=== PATIENT | female | born 2000 ===

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

== ENCOUNTER 2018-03-09 19:00 | Inpatient (IN) | payer MEDICAID, OTHER ==
[2018-03-09] MEDS ORDERED: Sodium Chloride 0.9% 1,000 ML IV STA (20:38)
--- NOTE | 2018-03-09 20:48 | ED PDOC ---
HPI: Back <Danay Brooks A - Last Filed: 03/09/18 23:24> Chief Complaint (Provider): low back pain History Per: Patient History/Exam Limitations: no limitations Onset/Duration Of Symptoms: Days (2), Waxing/Waning Current Symptoms Are (Timing): Still Present Quality Of Discomfort: "Pain" Exacerbating Factor(s): Turning, Movement Additional Complaint(s): 17 y/o female, approximately 16 weeks gestation, presents for evaluation of intermittent lower back pain x 2 days. Patient also reports nausea and 5 episodes of vomiting yesterday. States today she notes abdominal pain and subjective fevers. Denies congestion, cough, chest pain, shortness of breath, palpitations, changes in bowel movements, urinary symptoms, vaginal bleeding/discharge. No medication taken for relief thus far. A0 LMP 11/10/17 <Yumiko Gonzalez - Last Filed: 03/10/18 04:03> Time Seen by Provider: 03/09/18 20:13 Chief Complaint (Nursing): Back Pain Past Medical History Vital Signs: Last Vital Signs Temp 98.5 F 03/09/18 19:49 Pulse 78 03/09/18 19:49 Resp 16 03/09/18 19:49 BP 108/70 03/09/18 19:49 Pulse Ox 98 03/09/18 20:48 <Danay Brooks A - Last Filed: 03/09/18 23:24> Reviewed: Historical Data, Nursing Documentation, Vital Signs Vital Signs: Last Vital Signs Temp 98.5 F 03/09/18 19:49 Pulse 78 03/09/18 19:49 Resp 16 03/09/18 19:49 BP 108/70 03/09/18 19:49 Pulse Ox 98 03/09/18 19:49 - Medical History PMH: Anemia - Surgical History Surgical History: No Surg Hx - Family History Family History: States: No Known Family Hx <Yumiko Gonzalez - Last Filed: 03/10/18 04:03> - Home Medications Home Medications: Ambulatory Orders Medication Instructions Recorded Multivit/Folic Acid/I 1 tab PO DAILY #100 tab 12/25/17 [ Plus] - Allergies Allergies/Adverse Reactions: Allergies Allergy/AdvReac Type Severity Reaction Status Date / Time No Known Allergies Allergy Verified 03/09/18 19:49 Review of Systems ROS Statement: Except As Marked, All Systems Reviewed And Found Negative Gastrointestinal: Positive for: Abdominal Pain Musculoskeletal: Positive for: Back Pain <Yumiko Gonzalez C - Last Filed: 03/10/18 04:03> Physical Exam - Reviewed Nursing Documentation Reviewed: Yes Vital Signs Reviewed: Yes - Physical Exam Appears: Positive for: Well, Non-toxic, No Acute Distress Head Exam: Positive for: ATRAUMATIC, NORMAL INSPECTION, NORMOCEPHALIC Skin: Positive for: Normal Color Eye Exam: Positive for: Normal appearance ENT: Positive for: Normal ENT Inspection Cardiovascular/Chest: Positive for: Regular Rate, Rhythm Respiratory: Positive for: Normal Breath Sounds Gastrointestinal/Abdominal: Positive for: Bowel Sounds, Soft, Tenderness (epigastric, right flank, RLQ, suprapubic) Back: Positive for: Muscle Spasm (b/l lspine paravertebral tenderness). Negative for: L CVA Tenderness, R CVA Tenderness, Vertebral Tenderness, Decreased ROM Extremity: Positive for: Normal ROM Neurologic/Psych: Positive for: Alert, Oriented (x3) <Yumiko Gonzalez C - Last Filed: 03/10/18 04:03> - Laboratory Results Result Diagrams: 03/09/18 21:26 03/09/18 21:26 <Danay Brooks A - Last Filed: 03/09/18 23:24> - Laboratory Results Result Diagrams: 03/09/18 21:26 03/09/18 21:26 - ECG O2 Sat by Pulse Oximetry: 98 - Progress ED Course And Treament: labs, urine, u/s USArad abdominal RUQ u/s: gallbladder sludge USArad OB u/s: single live intrauterine gestation, 16 weeks, 1 day. Anterior placenta. Cephalic presentation. FH 155bpm Case discussed with ED attending Dr. Osborne; patient with elevated WBC and bandemia. Will place in observation for serial abdominal exams and MRI to r/out early appendicitis Patient evaluated by Dr. Morales, certified surgical technician on-call; will observe for MRI in am. Case discussed with Dr. Velasquez, hospitalist on-call for placement in observation <Yumiko Gonzalez C - Last Filed: 03/10/18 04:03> Disposition <Danay Brooks A - Last Filed: 03/09/18 23:24> - Patient ED Disposition Is Patient to be Admitted: No - Disposition Disposition Time: 03:00 <Yumiko Gonzalez - Last Filed: 03/10/18 04:03> - Clinical Impression Clinical Impression: Abdominal pain during , Bandemia - Disposition Condition: FAIR
[2018-03-09 21:33] LABS: BASO # 0.1 K/uL (0.0-0.2); BASO % 0.7 % (0.0-2.0); EOS % 0.2 % (0.0-4.0); HEMOGLOBIN 10.2 g/dL (12.0-16.0); LYMPH # 0.9 K/uL (1.0-4.3); LYMPH % 5.5 % (20.0-40.0); MEAN CELL VOLUME 83.2 fl (81.0-99.0); MEAN CORPUSCULAR HEMOGLOBIN 27.8 pg (27.0-31.0); MEAN CORPUSCULAR HGB CONC 33.5 g/dL (33.0-37.0); MEAN PLATELET VOLUME 8.7 fl (7.2-11.7); MONO # 1.6 K/uL (0.0-0.8); MONO % 10.3 % (0.0-10.0); NEUT % 83.3 % (50.0-75.0); PLATELET COUNT 216 K/uL (130-400); RBC 3.67 Mil/uL (3.80-5.20); RED CELL DISTRIBUTION WIDTH 16.6 % (11.5-14.5); WHITE BLOOD COUNT 15.6 K/uL (4.8-10.8)
[2018-03-09 21:40] LABS: ALB/GLOB RATIO 0.9 (1.0-2.1); ALBUMIN 3.8 g/dL (3.5-5.0); ALT/SGPT 50 U/L (9-52); AST/SGOT 45 U/L (14-36); BLOOD UREA NITROGEN 5 mg/dl (7-17); CALCIUM 9.2 mg/dL (8.4-10.2); GFR NON-AFRICAN AMERICAN > 60; LIPASE 19 U/L (23-300)
[2018-03-09 21:56] LABS: SQUAMOUS EPITHIAL 13 /hpf (0-5); URINE AMORPHOUS SEDIMENT RARE /ul (<OCC); URINE BACTERIA MOD (<OCC); URINE BILIRUBIN NEGATIVE (NEGATIVE); URINE BLOOD SMALL (NEGATIVE); URINE CLARITY CLOUDY (Clear); URINE COLOR YELLOW (YELLOW); URINE GLUCOSE (UA) NEG (Normal); URINE LEUKOCYTE ESTERASE TRACE Leu/uL (Negative); URINE PROTEIN 30 mg/dL (NEGATIVE); URINE UROBILINOGEN 0.2-1.0 mg/dL (0.2-1.0)
[2018-03-09 22:35] LABS: ANISOCYTOSIS SLIGHT; BANDS 5 % (0-2); BASOPHIL 1 % (0-2); LYMPHOCYTE 7 % (20-50); MONOCYTE 10 % (0-10); NEUTROPHIL 77 % (42-75); PLATELET ESTIMATE NORMAL (NORMAL); POIKILOCYTOSIS SLIGHT; TOTAL CELLS COUNTED 100
[2018-03-09 22:36] LABS: HYPOCHROMIC SLIGHT; MICROCYTOSIS SLIGHT; OVALOCYTES SLIGHT
--- NOTE | 2018-03-10 01:55 | CP.PCM.CON ---
Addendum entered and electronically signed by Elena Gee DO 03/10/18 12:32: No surgical intervention necessary at this time. Surgery will sign off. Please re-consult as necessary. Addendum entered and electronically signed by Elena Gee DO 03/10/18 12:27: MRI of abdomen/pelvis: No evidence of acute appendicitis, although normal appendix not positively identified on MRI. Trace fluid in right pericolic gutter, trace right perinephric fluid. Concern for pyelonephritis of right kidney. Pt tender Right CVA and right flank. Pt hungry. Appendicitis unlikely given MRI findings, clinical history of pain for several weeks, and physical exam. Will give regular diet. Pain/leukocytosis possibly secondary to pyelonephritis. Original Note: <FemibrendaJarad - Last Filed: 03/10/18 01:51> History of Present Illness - History of Present Illness History of Present Illness: Surgery: Dr. Schmidt CC: Abd pain HPI: 17F 16 weeks presents w. RLQ pain x 2 weeks. Pain is constant, described as cramp like. Pain is improved when pt lies on R side. Pt states that she has had no change in appetite over this period. However over the last 2 days she did have new onset nausea with emesis x 5. She denies diarrhea. She does report subjective fever and chills. She denies dysuria. Shes does state that her urine is darker than usual. No foul odor. She denies vaginal bleeding or discharge. PMH: Anemia PSH: none Meds: multi vitamin NKDA Social hx: No ETOH/tobacco/drugs Fhx: non-contributory Review of Systems - Review of Systems All systems: reviewed and no additional remarkable complaints except (HPI) Past Patient History - Past Social History Smoking Status: Never Smoked - HEMATOLOGICAL/ONCOLOGICAL Hx Anemia: Yes - PSYCHIATRIC Hx Substance Use: No - SURGICAL HISTORY Hx Surgeries: No - ANESTHESIA Hx Anesthesia: No Meds Allergies/Adverse Reactions: Allergies Allergy/AdvReac Type Severity Reaction Status Date / Time No Known Allergies Allergy Verified 03/09/18 19:49 Physical Exam - Constitutional Appears: Non-toxic, No Acute Distress - Head Exam Head Exam: ATRAUMATIC, NORMOCEPHALIC - Eye Exam Eye Exam: EOMI - ENT Exam ENT Exam: Mucous Membranes Moist - Neck Exam Neck exam: Positive for: Full Rom - Respiratory Exam Respiratory Exam: NORMAL BREATHING PATTERN. absent: Accessory Muscle Use, Respiratory Distress - Cardiovascular Exam Cardiovascular Exam: RRR - GI/Abdominal Exam GI & Abdominal Exam: Soft, Tenderness (RLQ, mild). absent: Distended, Firm, Guarding, Rebound, Rigid Additional comments: + Obturator, -Psoas - Extremities Exam Extremities exam: Negative for: calf tenderness, pedal edema - Neurological Exam Neurological exam: Alert, Oriented x3 Results - Vital Signs Recent Vital Signs: Last Vital Signs Temp 98.5 F 03/09/18 19:49 Pulse 78 03/09/18 19:49 Resp 16 03/09/18 19:49 BP 108/70 03/09/18 19:49 Pulse Ox 98 03/10/18 01:01 - Labs Result Diagrams: 03/09/18 21:26 03/09/18 21:26 Labs: Laboratory Results - last 24 hr 03/09/18 03/09/18 03/09/18 21:26 21:26 21:33 WBC 15.6 H D RBC 3.67 L Hgb 10.2 L Hct 30.5 L MCV 83.2 MCH 27.8 MCHC 33.5 RDW 16.6 H Plt Count 216 MPV 8.7 Neut % (Auto) 83.3 H Lymph % (Auto) 5.5 L [place] % (Auto) 10.3 H Eos % (Auto) 0.2 Baso % (Auto) 0.7 Neut # (Auto) 13.0 H Lymph # (Auto) 0.9 L [place] # (Auto) 1.6 H Eos # (Auto) 0.0 Baso # (Auto) 0.1 Neutrophils % (Manual) 77 H Band Neutrophils % 5 H Lymphocytes % (Manual) 7 L Monocytes % (Manual) 10 Basophils % (Manual) 1 Platelet Estimate Normal Hypochromasia (manual) Slight Poikilocytosis (manual Slight Anisocytosis (manual) Slight Microcytosis (manual) Slight Ovalocytes Slight Sodium 136 Potassium 3.9 Chloride 104 Carbon Dioxide 25 Anion Gap 11 BUN 5 L Creatinine 0.4 L Est GFR ( Amer) > 60 Est GFR (Non-Af Amer) > 60 Random Glucose 102 Calcium 9.2 Total Bilirubin 0.3 AST 45 H ALT 50 Alkaline Phosphatase 58 Total Protein 7.9 Albumin 3.8 Globulin 4.1 H Albumin/Globulin Ratio 0.9 L Lipase 19 L Urine Color Yellow Urine Clarity Cloudy Urine pH 7.0 Ur Specific [place] 1.009 Urine Protein 30 Urine Glucose (UA) Neg Urine Ketones Negative Urine Blood Small Urine Nitrate Negative Urine Bilirubin Negative Urine Urobilinogen 0.2-1.0 Ur Leukocyte Esterase Trace Urine RBC (Auto) 5 H Urine Microscopic WBC 6 H Ur Squamous Epith Cells 13 H Amorphous Sediment Rare H Urine Bacteria Mod H - Imaging and Cardiology US - abdomen Status: Image reviewed by me, Report reviewed by me Assessment & Plan - Assessment and Plan (Free Text) Assessment: 17F w. RLQ pain, r/o appy -NPO -IVF -MRI -No abx at this time -serial abd exams -d/w attending Andrew PGY4 <Palmer Schmidt - Last Filed: 03/10/18 10:40> History of Present Illness - History of Present Illness History of Present Illness: Patient was seen and examined at the bedside. Agree with resident's note above. Patient was c/o right flank pain for the last 1 month but during the course of the last 2 weeks the pain has gotten worse. Meds - Medications Medications: Current Medications Acetaminophen (Tylenol 325mg Tab) 650 mg PO Q6 PRN PRN Reason: Pain, moderate (4-7) Last Admin: 03/10/18 08:10 Dose: 650 mg Ceftriaxone Sodium 1 gm/ (Sodium Chloride) 100 mls @ 100 mls/hr IVPB DAILY OTTONIEL; Protocol Last Admin: 03/10/18 04:10 Dose: 100 mls/hr Sodium Chloride (Sodium Chloride 0.9%) 1,000 mls @ 999 mls/hr IV .Q1H1M OTTONIEL Stop: 03/10/18 11:15 Physical Exam - GI/Abdominal Exam Additional comments: soft, very mildly tender on the right side, ND, BS+, no rebound, no guarding - Back Exam Additional comments: very mild right CVA tenderness Results - Vital Signs Recent Vital Signs: Last Vital Signs Temp 101.9 F H 03/10/18 08:27 Pulse 109 H 03/10/18 08:27 Resp 20 03/10/18 08:27 BP 95/59 L 03/10/18 08:27 Pulse Ox 96 03/10/18 08:27 - Labs Result Diagrams: 03/10/18 03:55 03/10/18 03:55 Labs: Laboratory Results - last 24 hr 03/09/18 03/09/18 03/09/18 21:26 21:26 21:33 WBC 15.6 H D RBC 3.67 L Hgb 10.2 L Hct 30.5 L MCV 83.2 MCH 27.8 MCHC 33.5 RDW 16.6 H Plt Count 216 MPV 8.7 Neut % (Auto) 83.3 H Lymph % (Auto) 5.5 L [place] % (Auto) 10.3 H Eos % (Auto) 0.2 Baso % (Auto) 0.7 Neut # (Auto) 13.0 H Lymph # (Auto) 0.9 L [place] # (Auto) 1.6 H Eos # (Auto) 0.0 Baso # (Auto) 0.1 Neutrophils % (Manual) 77 H Band Neutrophils % 5 H Lymphocytes % (Manual) 7 L Monocytes % (Manual) 10 Basophils % (Manual) 1 Platelet Estimate Normal Hypochromasia (manual) Slight Poikilocytosis (manual Slight Anisocytosis (manual) Slight Microcytosis (manual) Slight Ovalocytes Slight Sodium 136 Potassium 3.9 Chloride 104 Carbon Dioxide 25 Anion Gap 11 BUN 5 L Creatinine 0.4 L Est GFR ( Amer) > 60 Est GFR (Non-Af Amer) > 60 Random Glucose 102 Calcium 9.2 Total Bilirubin 0.3 AST 45 H ALT 50 Alkaline Phosphatase 58 Total Protein 7.9 Albumin 3.8 Globulin 4.1 H Albumin/Globulin Ratio 0.9 L Lipase 19 L Urine Color Yellow Urine Clarity Cloudy Urine pH 7.0 Ur Specific [place] 1.009 Urine Protein 30 Urine Glucose (UA) Neg Urine Ketones Negative Urine Blood Small Urine Nitrate Negative Urine Bilirubin Negative Urine Urobilinogen 0.2-1.0 Ur Leukocyte Esterase Trace Urine RBC (Auto) 5 H Urine Microscopic WBC 6 H Ur Squamous Epith Cells 13 H Amorphous Sediment Rare H Urine Bacteria Mod H 03/10/18 03/10/18 03:55 03:55 WBC 14.8 H RBC 3.40 L Hgb 9.6 L Hct 28.3 L MCV 83.3 MCH 28.3 MCHC 34.0 RDW 16.6 H Plt Count 217 MPV 8.4 Neut % (Auto) 83.2 H Lymph % (Auto) 6.7 L [place] % (Auto) 9.7 Eos % (Auto) 0.3 Baso % (Auto) 0.1 Neut # (Auto) 12.3 H Lymph # (Auto) 1.0 [place] # (Auto) 1.4 H Eos # (Auto) 0.0 Baso # (Auto) 0.0 Neutrophils % (Manual) Band Neutrophils % Lymphocytes % (Manual) Monocytes % (Manual) Basophils % (Manual) Platelet Estimate Hypochromasia (manual) Poikilocytosis (manual Anisocytosis (manual) Microcytosis (manual) Ovalocytes Sodium 135 Potassium 3.7 Chloride 107 Carbon Dioxide 23 Anion Gap 9 L BUN 5 L Creatinine 0.4 L Est GFR ( Amer) > 60 Est GFR (Non-Af Amer) > 60 Random Glucose 102 Calcium 8.6 Total Bilirubin 0.2 AST 40 H ALT 52 Alkaline Phosphatase 51 Total Protein 6.9 Albumin 3.2 L Globulin 3.6 Albumin/Globulin Ratio 0.9 L Lipase Urine Color Urine Clarity Urine pH Ur Specific [place] Urine Protein Urine Glucose (UA) Urine Ketones Urine Blood Urine Nitrate Urine Bilirubin Urine Urobilinogen Ur Leukocyte Esterase Urine RBC (Auto) Urine Microscopic WBC Ur Squamous Epith Cells Amorphous Sediment Urine Bacteria Assessment & Plan - Assessment and Plan (Free Text) Assessment: 17 y.o. female with right flank and right sided abdominal pain Plan: - Keep NPO - IV fluids - pain control - MRI of abdomen/pelvis - Will follow
[2018-03-10] MEDS ORDERED: Sodium Chloride 0.9% 1,000 ML IV SCH ×2 (02:00→10:15)
[2018-03-10] MEDS ORDERED: Dextrose 5%/0.9% NS 1,000 ML IV ONE ×2 (02:21)
--- NOTE | 2018-03-10 02:44 | CP.PCM.HP ---
Addendum entered by Serena Hidalgo MD 03/10/18 15:35: Acute Pyelonephritis , unlikely ACute Appendicitis -transfer pt to Tele for close monitoring, pt persistently febrile - check lactate -IV ceftriaxone increase to 1 gram bid -ID consult Addendum entered and electronically signed by Bam Medeiros DPM 03/10/18 09:58: S: 17 y/o female patient was seen and evaluated at bedside. Patient complains of right flank pain at this time, however, denies any symptoms of nausea, vomiting, diarrhea, vaginal discharge or urinary complaints. Patient reports of minimal back pain, which been present for several weeks. Patient states this is her first , and denies any issues with her . Patient denies any ot her past medical history. O: Vitals signs reviewed- T 101.9, KS 109, BP 95/59 Exam: Abdominal Exam: Diminished Bowel Sounds, Soft, Tenderness to right upper quadrant and right flank, no RLQ tenderness with deep palpation, rosving negative, absent: Distended, Guarding Back exam: positive CVA tenderness (R), absent: CVA tenderness (L) A: 17 year old at 16 weeks GA with hx of nausea, vomiting, subjective fevers, right flank pain x 2 weeks admitted for right sided back pain, likely secondary to acute pyelonephritis vs acute appendicitis P: 1) Right Flank Pain - likely renal in origin vs RUQ (gallbladder) - Abdominal US Results- Pending Final read - pain management - General Surgery Consult- recommendations appreciated, patient NPO at this time - F/u MRI 2) Urinary Tract Infection - febrile, with positive leukocytosis - UA: positive - Continue Rocephin 1 gm DAILY OTTONIEL - STAT Bolus NS 1L, continue IV hydration - F/u Urine Culture - F/u Blood Culture 3) - OB-BAIT PACKER Consult- recommendations appreciated 4) DVT Prophylaxis - SCDs Original Note: <Sarah Diaz - Last Filed: 03/10/18 02:40> History of Present Illness - History of Present Illness History of Present Illness: 17 year old at 16 weeks GA presented with 2 week history of right flank pain, now with associated nausea and vomiting since yesterday. She reports she had pain on right side, pain has not worsened but has persisted. Pain does not radiate. She has not taken anything for the pain. She admits she does not drink much water and has constipation. Reports subjective fevers/chills but denies any dysuria, hematuria, malodor of urine. She last saw PMD about 2 weeks ago. No issues with . PMD: [facility] PMH: denies Medications: PNV Allergies: NKDA Social: no tobacco/etoh use Surgical Hx: denies Present on Admission - Present on Admission Any Indicators Present on Admission: No Review of Systems - Constitutional Constitutional: Chills, Fever - Cardiovascular Cardiovascular: absent: Chest Pain, Dyspnea, Rapid Heart Rate - Respiratory Respiratory: absent: Cough, Dyspnea - Gastrointestinal Gastrointestinal: Abdominal Pain (right flank pain), Constipation, Nausea, Vomiting. absent: Bloating, Change in Stool Character, Diarrhea - Genitourinary Genitourinary: Flank Pain (right). absent: Change in Urinary Stream, Difficulty Urinating, Dysuria, Hematuria, Urinary Frequency, Urinary Urgency - Neurological Neurological: absent: Dizziness Past Patient History - Infectious Disease Hx of Infectious Diseases: None - Past Social History Smoking Status: Never Smoked Alcohol: None Drugs: Denies - HEMATOLOGICAL/ONCOLOGICAL Hx Anemia: Yes - PSYCHIATRIC Hx Substance Use: No - SURGICAL HISTORY Hx Surgeries: No - ANESTHESIA Hx Anesthesia: No Meds Allergies/Adverse Reactions: Allergies Allergy/AdvReac Type Severity Reaction Status Date / Time No Known Allergies Allergy Verified 03/09/18 19:49 Physical Exam - Constitutional Appears: Non-toxic, No Acute Distress - Head Exam Head Exam: ATRAUMATIC, NORMAL INSPECTION, NORMOCEPHALIC - Eye Exam Eye Exam: EOMI, Normal appearance, PERRL Additional comments: wearing glasses - Respiratory Exam Respiratory Exam: Clear to Auscultation Bilateral, NORMAL BREATHING PATTERN. absent: Rales, Rhonchi, Wheezes - Cardiovascular Exam Cardiovascular Exam: REGULAR RHYTHM, +S1, +S2 - GI/Abdominal Exam GI & Abdominal Exam: Diminished Bowel Sounds, Soft, Tenderness (right abdomen, no RLQ tenderness with deep palpation, mild pain with obturator, psoas negative, rovsing negative). absent: Distended, Guarding - Extremities Exam Extremities exam: Positive for: normal inspection. Negative for: pedal edema - Back Exam Back exam: CVA tenderness (R). absent: CVA tenderness (L) - Neurological Exam Neurological exam: Alert, CN II-XII Intact, Oriented x3 - Psychiatric Exam Psychiatric exam: Normal Affect, Normal Mood - Skin Skin Exam: Dry, Intact, Normal Color, Warm Results - Vital Signs Recent Vital Signs: Last Vital Signs Temp 98.5 F 03/09/18 19:49 Pulse 78 03/09/18 19:49 Resp 16 03/09/18 19:49 BP 108/70 03/09/18 19:49 Pulse Ox 98 03/10/18 01:01 - Labs Result Diagrams: 03/09/18 21:26 03/09/18 21:26 Labs: Laboratory Results - last 24 hr 03/09/18 03/09/18 03/09/18 21:26 21:26 21:33 WBC 15.6 H D RBC 3.67 L Hgb 10.2 L Hct 30.5 L MCV 83.2 MCH 27.8 MCHC 33.5 RDW 16.6 H Plt Count 216 MPV 8.7 Neut % (Auto) 83.3 H Lymph % (Auto) 5.5 L [place] % (Auto) 10.3 H Eos % (Auto) 0.2 Baso % (Auto) 0.7 Neut # (Auto) 13.0 H Lymph # (Auto) 0.9 L [place] # (Auto) 1.6 H Eos # (Auto) 0.0 Baso # (Auto) 0.1 Neutrophils % (Manual) 77 H Band Neutrophils % 5 H Lymphocytes % (Manual) 7 L Monocytes % (Manual) 10 Basophils % (Manual) 1 Platelet Estimate Normal Hypochromasia (manual) Slight Poikilocytosis (manual Slight Anisocytosis (manual) Slight Microcytosis (manual) Slight Ovalocytes Slight Sodium 136 Potassium 3.9 Chloride 104 Carbon Dioxide 25 Anion Gap 11 BUN 5 L Creatinine 0.4 L Est GFR ( Amer) > 60 Est GFR (Non-Af Amer) > 60 Random Glucose 102 Calcium 9.2 Total Bilirubin 0.3 AST 45 H ALT 50 Alkaline Phosphatase 58 Total Protein 7.9 Albumin 3.8 Globulin 4.1 H Albumin/Globulin Ratio 0.9 L Lipase 19 L Urine Color Yellow Urine Clarity Cloudy Urine pH 7.0 Ur Specific [place] 1.009 Urine Protein 30 Urine Glucose (UA) Neg Urine Ketones Negative Urine Blood Small Urine Nitrate Negative Urine Bilirubin Negative Urine Urobilinogen 0.2-1.0 Ur Leukocyte Esterase Trace Urine RBC (Auto) 5 H Urine Microscopic WBC 6 H Ur Squamous Epith Cells 13 H Amorphous Sediment Rare H Urine Bacteria Mod H Assessment & Plan - Assessment and Plan (Free Text) Assessment: 17 year old at 16 weeks GA with hx of nausea, vomiting, subjective fevers, right flank pain x 2 weeks admitted for right sided back pain, likely secondary to acute pyelonephritis vs acute appendicitis Patient has R CVA tenderness, leukocytosis with trace leukocytes, +blood and moderate bacteria in urine. She is currently afebrile, hemodynamically stable. #Right sided back pain #Leukocytosis # #DVT Prophylaxis -Start rocephin -Tylenol for pain control -SCDs -MRI in AM -General surgery consult appreciated Case d/w Dr. Velasquez <Minesh Velasquez - Last Filed: 03/10/18 04:12> Results - Vital Signs Recent Vital Signs: Last Vital Signs Temp 98.5 F 03/09/18 19:49 Pulse 78 03/09/18 19:49 Resp 16 03/09/18 19:49 BP 108/70 03/09/18 19:49 Pulse Ox 98 03/10/18 01:01 - Labs Result Diagrams: 03/09/18 21:26 03/09/18 21:26 Labs: Laboratory Results - last 24 hr 03/09/18 03/09/18 03/09/18 21:26 21:26 21:33 WBC 15.6 H D RBC 3.67 L Hgb 10.2 L Hct 30.5 L MCV 83.2 MCH 27.8 MCHC 33.5 RDW 16.6 H Plt Count 216 MPV 8.7 Neut % (Auto) 83.3 H Lymph % (Auto) 5.5 L [place] % (Auto) 10.3 H Eos % (Auto) 0.2 Baso % (Auto) 0.7 Neut # (Auto) 13.0 H Lymph # (Auto) 0.9 L [place] # (Auto) 1.6 H Eos # (Auto) 0.0 Baso # (Auto) 0.1 Neutrophils % (Manual) 77 H Band Neutrophils % 5 H Lymphocytes % (Manual) 7 L Monocytes % (Manual) 10 Basophils % (Manual) 1 Platelet Estimate Normal Hypochromasia (manual) Slight Poikilocytosis (manual Slight Anisocytosis (manual) Slight Microcytosis (manual) Slight Ovalocytes Slight Sodium 136 Potassium 3.9 Chloride 104 Carbon Dioxide 25 Anion Gap 11 BUN 5 L Creatinine 0.4 L Est GFR ( Amer) > 60 Est GFR (Non-Af Amer) > 60 Random Glucose 102 Calcium 9.2 Total Bilirubin 0.3 AST 45 H ALT 50 Alkaline Phosphatase 58 Total Protein 7.9 Albumin 3.8 Globulin 4.1 H Albumin/Globulin Ratio 0.9 L Lipase 19 L Urine Color Yellow Urine Clarity Cloudy Urine pH 7.0 Ur Specific [place] 1.009 Urine Protein 30 Urine Glucose (UA) Neg Urine Ketones Negative Urine Blood Small Urine Nitrate Negative Urine Bilirubin Negative Urine Urobilinogen 0.2-1.0 Ur Leukocyte Esterase Trace Urine RBC (Auto) 5 H Urine Microscopic WBC 6 H Ur Squamous Epith Cells 13 H Amorphous Sediment Rare H Urine Bacteria Mod H Attending/Attestation - Attestation I have personally seen and examined this patient.: Yes I have fully participated in the care of the patient.: Yes I have reviewed all pertinent clinical information: Yes Notes (Text): 03/10/18 03:58 I saw, examined and discussed this patient with Dr Diaz. I agree with the assessment and plan. This 17 years old who is 16 weeks , presented with right back pain that radiates to the right mid to lower abdomen, no rebound but right costovertical angle is very tender on percussion. She referred two prior days with fever and had taken Tylenol. With Leukocytosis and 5% bands and a urine with Pyuria, I agree with treating this patient for a Pyelonephritis r/o Appendicitis. Follow up MRI of the abdomen. Surgery is on consult. Minesh Velasquez MD Hospitalist
[2018-03-10] MEDS ORDERED: cefTRIAXone (Rocephin) 1 gm Inj ONE (03:59)
[2018-03-10 04:14] LABS: BASO % 0.1 % (0.0-2.0); EOS % 0.3 % (0.0-4.0); HEMOGLOBIN 9.6 g/dL (12.0-16.0); LYMPH % 6.7 % (20.0-40.0); MEAN CELL VOLUME 83.3 fl (81.0-99.0); MEAN CORPUSCULAR HEMOGLOBIN 28.3 pg (27.0-31.0); MEAN PLATELET VOLUME 8.4 fl (7.2-11.7); MONO # 1.4 K/uL (0.0-0.8); MONO % 9.7 % (0.0-10.0); NEUT # 12.3 K/uL (1.8-7.0); NEUT % 83.2 % (50.0-75.0); RBC 3.4 Mil/uL (3.80-5.20); RED CELL DISTRIBUTION WIDTH 16.6 % (11.5-14.5); WHITE BLOOD COUNT 14.8 K/uL (4.8-10.8)
[2018-03-10 05:28] LABS: ALB/GLOB RATIO 0.9 (1.0-2.1); ALBUMIN 3.2 g/dL (3.5-5.0); ALT/SGPT 52 U/L (9-52); AST/SGOT 40 U/L (14-36); BLOOD UREA NITROGEN 5 mg/dl (7-17); CALCIUM 8.6 mg/dL (8.4-10.2); GFR NON-AFRICAN AMERICAN > 60
--- NOTE | 2018-03-10 11:57 | US ---
Date of service: 03/09/2018 HISTORY: right abdomen/flank/back pain COMPARISON: No prior abdominal ultrasound available for comparison. TECHNIQUE: Sonographic evaluation of the right upper quadrant of the abdomen. FINDINGS: LIVER: Measures 13.2 cm in length and appears otherwise unremarkable. No focal hepatic mass identified. The main portal vein appears patent with normal directional flow. No intrahepatic bile duct dilatation. GALLBLADDER: Gallbladder sludge. No gallstones. No gallbladder wall thickening or pericholecystic edema. Negative sonographic Staley's sign as assessed by the continuous drier helper. COMMON BILE DUCT: Measures 3 mm. PANCREAS: Not well-visualized. RIGHT KIDNEY: Measures 10.4 x 4.2 x 4.5 cm. No obstructing calculus or hydronephrosis identified. AORTA: Limited visualization appears grossly unremarkable. IVC: Limited visualization appears grossly unremarkable. OTHER FINDINGS: None . IMPRESSION: Gallbladder sludge. Preliminary impression was provided by Original.
--- NOTE | 2018-03-10 12:18 | MRI ---
Date of service: 03/10/2018 PROCEDURE: MRI abdomen HISTORY: r/o appy COMPARISON: Abdominal ultrasound 03/09/2018 TECHNIQUE: Multi sequence, multiplanar imaging of the abdomen was performed without intravenous gadolinium administration. FINDINGS: The examination demonstrates a single intrauterine gestation. The fetus is in cephalic presentation. An appropriate quantity of amniotic fluid is visualized. The placenta is grossly normal in appearance. The cervix is closed and normal in appearance. There is no evidence of placenta previa. The placenta is situated anteriorly towards the patient's right side. No gross anatomic abnormality is identified. This examination is not performed for evaluation of anatomy. The liver is grossly normal. The liver is not included in its entirety in the coronal and sagittal views for this examination. There is no biliary dilatation. There is no mass. The spleen is normal in size, contour and signal intensity. Pancreas is normal in appearance without evidence of mass or pancreatic ductal dilatation. There is no hydronephrosis. There is trace right perinephric fluid. There is no left perinephric fluid. There is no renal mass identified. Perinephric fluid is a nonspecific finding but may be seen in the setting of urinary tract obstruction and rupture or pyelonephritis. There is no gross abnormality of the visualized bowel. There is no evidence of appendicitis. A normal appendix is not positively identified in this examination. However, there is no distended tubular fluid-filled structure identified adjacent to the cecal apex. Note is made of trace fluid in the right pericolic gutter. This is a nonspecific finding. There is no generalized ascites. The visualized lumbar and lower thoracic spine is grossly normal in appearance. IMPRESSION: No sonographic evidence of acute appendicitis. Please note that a normal appendix is not positively identified in this examination and appendicitis cannot be entirely excluded on the basis of this examination, therefore. There is trace fluid in the right pericolic gutter common nonspecific. There is trace right perinephric fluid. This raises some concern regarding pyelonephritis of the right kidney. It is a nonspecific finding, however. There is an intrauterine gestation noted without gross abnormality at this time. The evaluation of the fetus and intrauterine gestation is grossly limited. Findings discussed by telephone with Dr. Saldaña at 12:05 p.m. on 03/10/2018.
--- NOTE | 2018-03-10 12:20 | US ---
Indication: , pelvic pain Comparison: Ob transvaginal ultrasound performed 12/25/17 Technique: Real-time ultrasound was performed through the pelvis. Findings: There is a single living fetus in cephalic presentation. Amniotic fluid volume is within normal limits. Anterior placenta. The placenta is not previa. There are no adnexal masses or cysts evident. Cervix length measures approximately 4.5 cm. The cervix appears closed. Measurements and calculations: Fetus has a composite sonographic age of 16 weeks 1 day. This calculation is based on the biparietal diameter, head circumference, abdominal circumference, and femur length. Estimated heart rate 155 beats per min. Estimated weight 141.6 g. Impression: Single living fetus with a composite sonographic age of 16 weeks 1 day. Estimated heart rate 155 beats per min. The study was performed for the emergent evaluation of pain, and the whole anatomic survey of the fetus was not performed. This should be performed on an outpatient elective basis as clinically warranted. Preliminary impression was provided by [employer].
[2018-03-10] MEDS: Sodium Chloride 0.9% 1,000 ML IV SCH ×2 (13:11→18:16)
[2018-03-10 14:17] LABS: BASO % 0.1 % (0.0-2.0); EOS % 0.2 % (0.0-4.0); HEMOGLOBIN 8.7 g/dL (12.0-16.0); LYMPH % 8.2 % (20.0-40.0); MEAN CELL VOLUME 84.7 fl (81.0-99.0); MEAN CORPUSCULAR HGB CONC 33.1 g/dL (33.0-37.0); MEAN PLATELET VOLUME 8.9 fl (7.2-11.7); MONO % 8.6 % (0.0-10.0); NEUT # 9.9 K/uL (1.8-7.0); NEUT % 82.9 % (50.0-75.0); RBC 3.12 Mil/uL (3.80-5.20); RED CELL DISTRIBUTION WIDTH 16.8 % (11.5-14.5)
[2018-03-10 14:21] LABS: ALB/GLOB RATIO 0.8 (1.0-2.1); ALBUMIN 2.8 g/dL (3.5-5.0); ALT/SGPT 34 U/L (9-52); AST/SGOT 27 U/L (14-36); BLOOD UREA NITROGEN 3 mg/dl (7-17); CALCIUM 7.8 mg/dL (8.4-10.2); GFR NON-AFRICAN AMERICAN > 60
--- NOTE | 2018-03-10 16:23 | CP.PCM.PCO ---
Addendum Addendum: 03/10/18 16:17 17 yo,f, IUP at 16 weeks admitted for pyelonephritis vs acute appendicitis. patient febrile with sepsis, iv fluids given, BP normalized. on Rocephin BID doppler bedside FHR: 170 . tachy 2/2 febrile mother with sepsis. OB fellow aware.
[2018-03-11 05:44] LABS: BASO % 0.2 % (0.0-2.0); EOS % 0.4 % (0.0-4.0); HEMOGLOBIN 9.3 g/dL (12.0-16.0); LYMPH % 10.4 % (20.0-40.0); MEAN CORPUSCULAR HEMOGLOBIN 28.4 pg (27.0-31.0); MEAN CORPUSCULAR HGB CONC 33.8 g/dL (33.0-37.0); MEAN PLATELET VOLUME 9.1 fl (7.2-11.7); MONO # 0.9 K/uL (0.0-0.8); MONO % 9.9 % (0.0-10.0); NEUT # 7.3 K/uL (1.8-7.0); NEUT % 79.1 % (50.0-75.0); RBC 3.29 Mil/uL (3.80-5.20); RED CELL DISTRIBUTION WIDTH 16.4 % (11.5-14.5); WHITE BLOOD COUNT 9.3 K/uL (4.8-10.8)
[2018-03-11 06:12] LABS: ALB/GLOB RATIO 0.8 (1.0-2.1); ALBUMIN 2.9 g/dL (3.5-5.0); ALT/SGPT 37 U/L (9-52); AST/SGOT 32 U/L (14-36); BLOOD UREA NITROGEN < 2 mg/dl (7-17); CALCIUM 8.2 mg/dL (8.4-10.2); GFR NON-AFRICAN AMERICAN > 60
--- NOTE | 2018-03-11 08:23 | CP.PCM.PN ---
<Bam Medeiros - Last Filed: 03/11/18 13:26> Subjective - Date & Time of Evaluation Date of Evaluation: 03/11/18 Time of Evaluation: 08:17 - Subjective Subjective: 17 y/o female patient was seen and evaluated at bedside. Patient states all her symptoms have resolved and denies any symptoms of nausea, vomiting, diarrhea, vaginal discharge or urinary complaints. Objective - Vital Signs/Intake and Output Vital Signs (last 24 hours): Temp Pulse Resp BP Pulse Ox 100.3 F H 113 H 18 108/57 L 98 03/11/18 08:00 03/11/18 08:00 03/11/18 08:00 03/11/18 08:00 03/11/18 08:00 - Medications Medications: Current Medications Acetaminophen (Tylenol 325mg Tab) 650 mg PO Q6 PRN PRN Reason: Pain, moderate (4-7) Last Admin: 03/10/18 18:15 Dose: 650 mg Ceftriaxone Sodium 1 gm/ (Sodium Chloride) 100 mls @ 100 mls/hr IVPB Q12H [facility]; Protocol Last Admin: 03/10/18 23:00 Dose: 100 mls/hr Ondansetron HCl (Zofran Tab) 4 mg PO Q6 PRN PRN Reason: Nausea/Vomiting - Labs Labs: 03/11/18 05:16 03/11/18 05:16 - Constitutional Appears: Well, Non-toxic, No Acute Distress - Head Exam Head Exam: ATRAUMATIC, NORMOCEPHALIC - Eye Exam Eye Exam: Normal appearance - ENT Exam ENT Exam: Mucous Membranes Moist - Respiratory Exam Respiratory Exam: Clear to Ausculation Bilateral, NORMAL BREATHING PATTERN. absent: Rales, Rhonchi, Wheezes - Cardiovascular Exam Cardiovascular Exam: REGULAR RHYTHM, RRR, +S1, +S2 - GI/Abdominal Exam GI & Abdominal Exam: Soft, Normal Bowel Sounds. absent: Firm, Guarding, Rigid, Tenderness - Back Exam Back Exam: absent: CVA tenderness (L), CVA tenderness (R) - Neurological Exam Neurological Exam: Alert, Awake, Oriented x3 - Psychiatric Exam Psychiatric exam: Normal Affect, Normal Mood - Skin Skin Exam: Normal Color Assessment and Plan - Assessment and Plan (Free Text) Assessment: 17 year old at 16 weeks GA with hx of nausea, vomiting, subjective fevers, right flank pain x 2 weeks admitted for right sided back pain, likely secondary to acute pyelonephritis Plan: 1) Right Flank Pain - likely renal in origin vs RUQ (gallbladder) - Abdominal US Results- Pending Final read - pain management - General Surgery Consult- acute appendicitis r/o via MRI, No surgical intervention necessary at this time. Surgery will sign off. - MRI- No evidence of acute appendicitis, although normal appendix not positively identified on MRI. Trace fluid in right pericolic gutter, trace right perinephric fluid. Concern for pyelonephritis of right kidney. 2) Urinary Tract Infection with sepsis - Patient transferred to Telemetry for monitoring - febrile, with positive leukocytosis - UA: positive - Blood Culture- positive for Gram Negative rods, final read pending - Continue Rocephin 1 gm BID OTTONIEL - STAT Bolus NS 1L X 2 given to patient with continuous IV hydration- IV hydration discontinued at this time - Urine Culture- Pending - Infectious Disease Consult- recommendations appreciated 3) - MANUFACTURING ENGINEERING INTERN Consult- doppler bedside FHR: 170 . tachy 2/2 febrile mother with sepsis, OB fellow aware. 4) DVT Prophylaxis - SCDs <Rajiv Moya - Last Filed: 03/11/18 17:29> Objective - Vital Signs/Intake and Output Vital Signs (last 24 hours): Temp Pulse Resp BP Pulse Ox 99.3 F 103 H 20 96/61 L 98 03/11/18 16:15 03/11/18 16:15 03/11/18 16:15 03/11/18 16:15 03/11/18 16:15 - Medications Medications: Current Medications Acetaminophen (Tylenol 325mg Tab) 650 mg PO Q6 PRN PRN Reason: Pain, moderate (4-7) Last Admin: 03/10/18 18:15 Dose: 650 mg Ceftriaxone Sodium 1 gm/ (Sodium Chloride) 100 mls @ 100 mls/hr IVPB Q12H O[facility]; Protocol Last Admin: 03/11/18 10:14 Dose: 100 mls/hr Sodium Chloride (Sodium Chloride 0.9%) 1,000 mls @ 100 mls/hr IV .Q10H O[facility] Stop: 03/12/18 14:22 Last Admin: 03/11/18 16:17 Dose: 100 mls/hr Ondansetron HCl (Zofran Tab) 4 mg PO Q6 PRN PRN Reason: Nausea/Vomiting - Labs Labs: 03/11/18 05:16 03/11/18 05:16 Attending/Attestation - Attestation I have personally seen and examined this patient.: Yes I have fully participated in the care of the patient.: Yes I have reviewed all pertinent clinical information, including history, physical exam and plan: Yes Notes (Text): Pyelonephritis Bacteremia ID consult follow cultures cont iv abx
--- NOTE | 2018-03-11 11:56 | CP.PCM.CON ---
<Rianna Garza - Last Filed: 03/11/18 14:32> History of Present Illness - History of Present Illness History of Present Illness: 17-year-old at 16 weeks (confirmed via 1st tri u/s at 9 weeks) was sent to ED from [place] with CVA tenderness and fever and admitted for UTI with sepsis. Currently she denies nausea, vomiting, chills, shortness of breath, difficulty breathing and urinary symptoms. : [place] Hx: denies PMH: denies Allergies: denies Meds: denies FHx: denies Social: denies alcohol, illicit drugs, and tobacco Physical Exam: Vitals: T 100.3F, HR 113, BP 108/57 Abd: no tenderness to palpation Back: no bilateral CVA tenderness Extremities: no pitting edema Labs: WBC 9.3 (15.6 on admission) Urine: 5 RBC, 6 WBC, ur squam 13, amorphous rare, bacteria moderate Assessment:17-year-old at 16 weeks (confirmed via 1st tri u/s at 9 weeks) was sent to ED from [place] with CVA tenderness and fever and admitted for UTI with sepsis. Plan: -Continue present management as per Medicine (IV ceftriaxone 1g BID) -Once antibiotic course is completed and infection clears patient to be placed on Macrobid 100 mg daily for remainder of through delivery Case discussed with Dr. León ---Rianna Garza, PGY1 Past Patient History - Infectious Disease Hx of Infectious Diseases: None - Past Medical History & Family History Past Medical History?: Yes - Past Social History Smoking Status: Never Smoked - HEMATOLOGICAL/ONCOLOGICAL Hx Anemia: Yes - MUSCULOSKELETAL/RHEUMATOLOGICAL Hx Falls: No - PSYCHIATRIC Hx Substance Use: No - SURGICAL HISTORY Hx Surgeries: No - ANESTHESIA Hx Anesthesia: No Meds Allergies/Adverse Reactions: Allergies Allergy/AdvReac Type Severity Reaction Status Date / Time No Known Allergies Allergy Verified 03/09/18 19:49 - Medications Medications: Current Medications Acetaminophen (Tylenol 325mg Tab) 650 mg PO Q6 PRN PRN Reason: Pain, moderate (4-7) Last Admin: 03/10/18 18:15 Dose: 650 mg Ceftriaxone Sodium 1 gm/ (Sodium Chloride) 100 mls @ 100 mls/hr IVPB Q12H O[facility]IEL; Protocol Last Admin: 03/11/18 10:14 Dose: 100 mls/hr Ondansetron HCl (Zofran Tab) 4 mg PO Q6 PRN PRN Reason: Nausea/Vomiting Physical Exam - Constitutional Appears: Well, Non-toxic - Head Exam Head Exam: ATRAUMATIC, NORMAL INSPECTION - Eye Exam Eye Exam: Normal appearance - Respiratory Exam Respiratory Exam: Clear to Auscultation Bilateral, NORMAL BREATHING PATTERN - Cardiovascular Exam Cardiovascular Exam: REGULAR RHYTHM - GI/Abdominal Exam GI & Abdominal Exam: Normal Bowel Sounds, Soft - Back Exam Back exam: NORMAL INSPECTION. absent: CVA tenderness (L), CVA tenderness (R) - Psychiatric Exam Psychiatric exam: Normal Affect, Normal Mood - Skin Skin Exam: Intact, Normal Color, Warm Results - Vital Signs Recent Vital Signs: Last Vital Signs Temp 100.3 F H 03/11/18 09:00 Pulse 113 H 03/11/18 09:00 Resp 18 03/11/18 09:00 BP 108/57 L 03/11/18 09:00 Pulse Ox 98 03/11/18 09:00 - Labs Result Diagrams: 03/11/18 05:16 03/11/18 05:16 Labs: Laboratory Results - last 24 hr 03/10/18 03/10/18 03/10/18 13:29 13:29 13:39 WBC 12.0 H RBC 3.12 L Hgb 8.7 L Hct 26.4 L MCV 84.7 MCH 28.0 MCHC 33.1 RDW 16.8 H Plt Count 195 MPV 8.9 Neut % (Auto) 82.9 H Lymph % (Auto) 8.2 L [place] % (Auto) 8.6 Eos % (Auto) 0.2 Baso % (Auto) 0.1 Neut # (Auto) 9.9 H Lymph # (Auto) 1.0 [place] # (Auto) 1.0 H Eos # (Auto) 0.0 Baso # (Auto) 0.0 Sodium 137 Potassium 3.6 Chloride 110 H Carbon Dioxide 22 Anion Gap 9 L BUN 3 L Creatinine 0.4 L Est GFR ( Amer) > 60 Est GFR (Non-Af Amer) > 60 Random Glucose 112 H Lactic Acid 1.6 Calcium 7.8 L Total Bilirubin 0.1 L AST 27 ALT 34 Alkaline Phosphatase 45 Total Protein 6.2 L Albumin 2.8 L Globulin 3.3 Albumin/Globulin Ratio 0.8 L 03/11/18 03/11/18 05:16 05:16 WBC 9.3 RBC 3.29 L Hgb 9.3 L Hct 27.7 L MCV 84.0 MCH 28.4 MCHC 33.8 RDW 16.4 H Plt Count 207 MPV 9.1 Neut % (Auto) 79.1 H Lymph % (Auto) 10.4 L [place] % (Auto) 9.9 Eos % (Auto) 0.4 Baso % (Auto) 0.2 Neut # (Auto) 7.3 H Lymph # (Auto) 1.0 [place] # (Auto) 0.9 H Eos # (Auto) 0.0 Baso # (Auto) 0.0 Sodium 136 Potassium 3.7 Chloride 107 Carbon Dioxide 21 L Anion Gap 12 BUN < 2 L Creatinine 0.4 L Est GFR ( Amer) > 60 Est GFR (Non-Af Amer) > 60 Random Glucose 116 H Lactic Acid Calcium 8.2 L Total Bilirubin 0.1 L AST 32 ALT 37 Alkaline Phosphatase 58 Total Protein 6.4 Albumin 2.9 L Globulin 3.5 Albumin/Globulin Ratio 0.8 L <Deion León - Last Filed: 03/12/18 04:08> Meds - Medications Medications: Current Medications Acetaminophen (Tylenol 325mg Tab) 650 mg PO Q6 PRN PRN Reason: Pain, moderate (4-7) Last Admin: 03/10/18 18:15 Dose: 650 mg Ceftriaxone Sodium 1 gm/ (Sodium Chloride) 100 mls @ 100 mls/hr IVPB Q12H [facility]; Protocol Last Admin: 03/11/18 22:14 Dose: 100 mls/hr Sodium Chloride (Sodium Chloride 0.9%) 1,000 mls @ 100 mls/hr IV .Q10H [facility] Stop: 03/12/18 14:22 Last Admin: 03/11/18 16:17 Dose: 100 mls/hr Ondansetron HCl (Zofran Tab) 4 mg PO Q6 PRN PRN Reason: Nausea/Vomiting Results - Vital Signs Recent Vital Signs: Last Vital Signs Temp 99.6 F 03/12/18 00:04 Pulse 104 H 03/12/18 00:04 Resp 18 03/12/18 00:04 BP 109/67 03/12/18 00:04 Pulse Ox 98 03/12/18 00:04 - Labs Result Diagrams: 03/11/18 05:16 03/11/18 05:16 Labs: Laboratory Results - last 24 hr 03/11/18 03/11/18 05:16 05:16 WBC 9.3 RBC 3.29 L Hgb 9.3 L Hct 27.7 L MCV 84.0 MCH 28.4 MCHC 33.8 RDW 16.4 H Plt Count 207 MPV 9.1 Neut % (Auto) 79.1 H Lymph % (Auto) 10.4 L [place] % (Auto) 9.9 Eos % (Auto) 0.4 Baso % (Auto) 0.2 Neut # (Auto) 7.3 H Lymph # (Auto) 1.0 [place] # (Auto) 0.9 H Eos # (Auto) 0.0 Baso # (Auto) 0.0 Sodium 136 Potassium 3.7 Chloride 107 Carbon Dioxide 21 L Anion Gap 12 BUN < 2 L Creatinine 0.4 L Est GFR ( Amer) > 60 Est GFR (Non-Af Amer) > 60 Random Glucose 116 H Calcium 8.2 L Total Bilirubin 0.1 L AST 32 ALT 37 Alkaline Phosphatase 58 Total Protein 6.4 Albumin 2.9 L Globulin 3.5 Albumin/Globulin Ratio 0.8 L Assessment & Plan - Assessment and Plan (Free Text) Assessment: 16 weeks gestational age with pyelonephritis. Plan: Continue antibiotics as per primary team Recommend daily prophylaxis with Macrobid after initial antibiotic course completed Macrobid should be completed until end of I saw patient and discussed plan with patient. All patient questions answered. - Date & Time Date: 03/12/18 Time: 04:08
[2018-03-11] MEDS: Sodium Chloride 0.9% 1,000 ML IV SCH (16:17)
--- NOTE | 2018-03-11 18:38 | CP.PCM.CON ---
History of Present Illness - History of Present Illness History of Present Illness: 17-year-old at 16 weeks was sent to ED from [place] with CVA tenderness and fever and admitted for UTI with sepsis. Blood and urine cultures + for Gram neg rods discussed with her the need to stay for antibiotic treatment would cont IV antibiotics OBGYN Hx: denies PMH: denies Allergies: denies Meds: denies FHx: denies Social: denies alcohol, illicit drugs, and tobacco Review of Systems - Review of Systems All systems: reviewed and no additional remarkable complaints except - Constitutional Constitutional: As Per HPI - EENT Eyes: absent: As Per HPI, Blind Spots, Blurred Vision, Change in Vision, Decreased Night Vision, Diplopia, Discharge, Dry Eye, Exophthalmos, Floaters, Irritation, Itchy Eyes, Loss of Peripheral Vision, Pain, Photophobia, Requires Corrective Lenses, Sees Flashes, Spots in Vision, Tunnel Vision, Other Visual Disturbances, Loss of Vision, Other Ears: absent: As Per HPI, Decreased Hearing, Ear Discharge, Ear Pain, Tinnitus, Abnormal Hearing, Disequilibrium, Dizziness, Other Nose/Mouth/Throat: absent: As Per HPI, Epistaxis, Nasal Congestion, Nasal Discharge, Nasal Obstruction, Nasal Trauma, Nose Pain, Post Nasal Drip, Sinus Pain, Sinus Pressure, Bleeding Gums, Change in Voice, Dental Pain, Dry Mouth, Dysphagia, Halitosis, Hoarsness, Lip Swelling, Mouth Lesions, Mouth Pain, Odynophagia, Sore Throat, Throat Swelling, Tongue Swelling, Facial Pain, Neck Pain, Neck Mass, Other - Breasts Breasts: absent: As Per HPI, Change in Shape, Mass, Pain, Nipple Discharge, Nipple Inversion, Skin Changes, Swelling, Other - Cardiovascular Cardiovascular: absent: As Per HPI, Acrocyanosis, Chest Pain, Chest Pain at Rest, Chest Pain with Activity, Claudication, Diaphoresis, Dyspnea, Dyspnea on Exertion, Edema, Irregular Heart Rhythm, Pain Radiating to Arm/Neck/Jaw, Leg Edema, Leg Ulcers, Lightheadedness, Orthopnea, Palpitations, Paroxysmal Nocturnal Dyspnea, Pedal Edema, Radiating Pain, Rapid Heart Rate, Slow Heart Ra te, Syncope, Other - Respiratory Respiratory: absent: As Per HPI, Cough, Dyspnea, Hemoptysis, Dyspnea on Exertion, Wheezing, Snoring, Stridor, Pain on Inspiration, Chest Congestion, Excessive Mucous Production, Change in Mucous Color, Pain with Coughing, Other - Gastrointestinal Gastrointestinal: absent: As Per HPI, Abdominal Pain, Belching, Bloating, Change in Bowel Habits, Change in Stool Character, Coffee Ground Emesis, Constipation, Cramping, Diarrhea, Dyspepsia, Dysphagia, Early Satiety, Excessive Flatus, Fecal Incontinence, Heartburn, Hematemesis, Hematochezia, Loose Stools, Melena, Nausea, Odynophagia, Temesmus, Vomiting, Other - Genitourinary Genitourinary: As Per HPI - Reproductive: Female Reproductive:Female: As Per HPI - Menstruation Menstruation: As Per HPI - Musculoskeletal Musculoskeletal: absent: As Per HPI, Abnormal Gait, Arthralgias, Atrophy, Back Pain, Deformity, Joint Swelling, Limited Range of Motion, Loss of Height, Muscle Cramps, Muscle Weakness, Myalgias, Neck Pain, Numbness, Radiating Pain into Limb, Stiffness, Tingling, Other - Integumentary Integumentary: absent: As Per HPI, Acne, Alopecia, Bleeding Lesions, Change in Hair, Change in Nails, Change in Pigmentation, Changing Lesions, Dry Skin, Erythema, Furuncle, Hirsutism, Lesions, New Lesions, Non-Healing Lesions, Photosensitivity, Pruritus, Rash, Skin Pain, Skin Ulcer, Sores, Striae, Swelling, Unusual Bruising, Wounds, Jaundice, Other - Neurological Neurological: absent: As Per HPI, Abnormal Gait, Abnormal Hearing, Abnormal Movements, Abnormal Speech, Behavioral Changes, Burning Sensations, Confusion, Convulsions, Disequilibrium, Dizziness, Numbness, Focal Weakness, Frequent Falls, Headaches, Lack of Coordination, Loss of Vision, Memory Loss, Paresthesias, Radicular Pain, Restless Legs, Sensory Deficit, Syncope, Tingling, Tremor, Vertigo, Weakness, Other Visual Disturbances, Other - Psychiatric Psychiatric: absent: As Per HPI, Abnormal Sleep Pattern, Anhedonia, Anxiety, Auditory Hallucinations, Behavioral Changes, Change in Appetite, Change in Libido, Confusion, Depression, Difficulty Concentrating, Hallucinations, Homicidal Ideation, Hopelessness, Irritability, Memory Loss, Mood Swings, Panic Attacks, Paranoia, Suicidal Ideation, Visual Hallucinations, Tactile Hallucinations, Other - Endocrine Endocrine: absent: As Per HPI, Change in Body Appearance, Change in Libido, Cold Intolorance, Deepening of Voice, Excessive Sweating, Fatigue, Flushing, Heat Intolorance, Increase in Ring/Shoe/Hat Size, Palpitations, Polydipsia, Polyphagia, Polyuria, Other - Hematologic/Lymphatic Hematologic: absent: As Per HPI, Easy Bleeding, Easy Bruising, Lymphadenopathy, Other Past Patient History - Infectious Disease Hx of Infectious Diseases: None - Past Medical History & Family History Past Medical History?: Yes - Past Social History Smoking Status: Never Smoked - HEMATOLOGICAL/ONCOLOGICAL Hx Anemia: Yes - MUSCULOSKELETAL/RHEUMATOLOGICAL Hx Falls: No - PSYCHIATRIC Hx Substance Use: No - SURGICAL HISTORY Hx Surgeries: No - ANESTHESIA Hx Anesthesia: No Meds Allergies/Adverse Reactions: Allergies Allergy/AdvReac Type Severity Reaction Status Date / Time No Known Allergies Allergy Verified 03/09/18 19:49 - Medications Medications: Current Medications Acetaminophen (Tylenol 325mg Tab) 650 mg PO Q6 PRN PRN Reason: Pain, moderate (4-7) Last Admin: 03/10/18 18:15 Dose: 650 mg Ceftriaxone Sodium 1 gm/ (Sodium Chloride) 100 mls @ 100 mls/hr IVPB Q12H [facility]IEL; Protocol Last Admin: 03/11/18 10:14 Dose: 100 mls/hr Sodium Chloride (Sodium Chloride 0.9%) 1,000 mls @ 100 mls/hr IV .Q10H [facility] Stop: 03/12/18 14:22 Last Admin: 03/11/18 16:17 Dose: 100 mls/hr Ondansetron HCl (Zofran Tab) 4 mg PO Q6 PRN PRN Reason: Nausea/Vomiting Physical Exam - Constitutional Appears: Non-toxic, Chronically Ill - Head Exam Head Exam: NORMOCEPHALIC - Eye Exam Eye Exam: PERRL. absent: Scleral icterus - ENT Exam ENT Exam: Mucous Membranes Dry - Neck Exam Neck exam: Negative for: Lymphadenopathy - Respiratory Exam Respiratory Exam: Decreased Breath Sounds - Cardiovascular Exam Cardiovascular Exam: REGULAR RHYTHM - GI/Abdominal Exam GI & Abdominal Exam: Diminished Bowel Sounds, Soft. absent: Tenderness - Rectal Exam Rectal Exam: Deferred - Exam Exam: NORMAL INSPECTION - Extremities Exam Extremities exam: Positive for: pedal pulses present. Negative for: calf tenderness, pedal edema, tenderness - Back Exam Back exam: absent: CVA tenderness (L), CVA tenderness (R) - Neurological Exam Neurological exam: Alert, CN II-XII Intact, Reflexes Normal - Psychiatric Exam Psychiatric exam: Normal Mood - Skin Skin Exam: Dry, Intact Results - Vital Signs Recent Vital Signs: Last Vital Signs Temp 99.3 F 03/11/18 16:15 Pulse 103 H 03/11/18 16:15 Resp 20 03/11/18 16:15 BP 96/61 L 03/11/18 16:15 Pulse Ox 98 03/11/18 16:15 - Labs Result Diagrams: 03/11/18 05:16 03/11/18 05:16 Labs: Laboratory Results - last 24 hr 03/11/18 03/11/18 05:16 05:16 WBC 9.3 RBC 3.29 L Hgb 9.3 L Hct 27.7 L MCV 84.0 MCH 28.4 MCHC 33.8 RDW 16.4 H Plt Count 207 MPV 9.1 Neut % (Auto) 79.1 H Lymph % (Auto) 10.4 L [place] % (Auto) 9.9 Eos % (Auto) 0.4 Baso % (Auto) 0.2 Neut # (Auto) 7.3 H Lymph # (Auto) 1.0 [place] # (Auto) 0.9 H Eos # (Auto) 0.0 Baso # (Auto) 0.0 Sodium 136 Potassium 3.7 Chloride 107 Carbon Dioxide 21 L Anion Gap 12 BUN < 2 L Creatinine 0.4 L Est GFR ( Amer) > 60 Est GFR (Non-Af Amer) > 60 Random Glucose 116 H Calcium 8.2 L Total Bilirubin 0.1 L AST 32 ALT 37 Alkaline Phosphatase 58 Total Protein 6.4 Albumin 2.9 L Globulin 3.5 Albumin/Globulin Ratio 0.8 L Assessment & Plan (1) Sepsis Status: Acute (2) Abdominal pain during Status: Acute (3) Pyelonephritis affecting Status: Acute (4) Pyelonephritis affecting in first trimester Status: Acute (5) Bacteremia Status: Acute - Assessment and Plan (Free Text) Assessment: cont IV rx for bacteremia/ pyelo Fitter Hand eval await cultures
[2018-03-12 00:04] VITALS: RESP 18; O2SAT 98
[2018-03-12] MEDS: Sodium Chloride 0.9% 1,000 ML IV SCH ×2 (05:09→10:35)
[2018-03-12] MEDS ORDERED: Prenatal Multivit/Folic Acid/Iron Tab PO SCH (09:45)
--- NOTE | 2018-03-12 11:31 | CP.PCM.PN ---
Subjective - Date & Time of Evaluation Date of Evaluation: 03/12/18 Time of Evaluation: 11:29 - Subjective Subjective: 17 y/o female patient was seen and evaluated at bedside. Patient states all her symptoms have resolved and denies any symptoms of nausea, vomiting, diarrhea, vaginal discharge or urinary complaints. Objective - Vital Signs/Intake and Output Vital Signs (last 24 hours): Temp Pulse Resp BP Pulse Ox 98.2 F 98 H 18 98/62 L 98 03/12/18 08:45 03/12/18 08:45 03/12/18 08:45 03/12/18 08:45 03/12/18 08:45 Intake and Output: 03/12/18 03/12/18 06:59 18:59 Intake Total 1000 Output Total 900 Balance 100 - Medications Medications: Current Medications Acetaminophen (Tylenol 325mg Tab) 650 mg PO Q6 PRN PRN Reason: Pain, moderate (4-7) Last Admin: 03/10/18 18:15 Dose: 650 mg Sodium Chloride (Sodium Chloride 0.9%) 1,000 mls @ 100 mls/hr IV .Q10H [facility] Stop: 03/12/18 14:22 Last Admin: 03/12/18 10:35 Dose: 100 mls/hr Iron Sucrose 100 mg/ Sodium (Chloride) 105 mls @ 105 mls/hr IVPB DAILY [facility] Last Admin: 03/12/18 10:36 Dose: 105 mls/hr Ceftriaxone Sodium 1 gm/ (Sodium Chloride) 100 mls @ 100 mls/hr IVPB DAILY [facility]ONIEL; Protocol Last Admin: 03/12/18 10:33 Dose: 100 mls/hr Ondansetron HCl (Zofran Tab) 4 mg PO Q6 PRN PRN Reason: Nausea/Vomiting Multivit/Folic Acid/Iron () 1 tab PO DAILY [facility]ONIEL Last Admin: 03/12/18 10:33 Dose: 1 tab - Labs Labs: 03/11/18 05:16 03/11/18 05:16 - Constitutional Appears: Well, Non-toxic, No Acute Distress - Head Exam Head Exam: ATRAUMATIC, NORMOCEPHALIC - Eye Exam Eye Exam: Normal appearance - ENT Exam ENT Exam: Mucous Membranes Moist - Respiratory Exam Respiratory Exam: Clear to Ausculation Bilateral, NORMAL BREATHING PATTERN. absent: Rales, Rhonchi, Wheezes - Cardiovascular Exam Cardiovascular Exam: REGULAR RHYTHM, RRR, +S1, +S2. absent: JVD - GI/Abdominal Exam GI & Abdominal Exam: Soft, Normal Bowel Sounds. absent: Firm, Guarding, Rigid - Neurological Exam Neurological Exam: Alert, Awake, Oriented x3 - Psychiatric Exam Psychiatric exam: Normal Affect, Normal Mood - Skin Skin Exam: Normal Color Assessment and Plan - Assessment and Plan (Free Text) Assessment: 17 year old at 16 weeks GA with hx of nausea, vomiting, subjective fevers, right flank pain x 2 weeks admitted for right sided back pain, likely secondary to acute pyelonephritis and urinary tract infection with sepsis Plan: 1) Urinary Tract Infection with Sepsis - Patient transferred to Telemetry for monitoring - febrile, with positive leukocytosis - UA: positive - Blood Culture- positive for E. Coli - Urine Culture- E. Coli - Continue Rocephin 1 gm DAILY OTTONIEL - patient tolerating PO, continue IV hydration - Infectious Disease Consult- As per Dr. Wang, continue current treatment plan - Pending Repeat blood cultures 2) Right Flank Pain - likely renal in origin vs RUQ (gallbladder) - Abdominal US Results- Pending Final read - pain management- patient reports symptoms have resolved - General Surgery Consult- acute appendicitis r/o via MRI, No surgical intervention necessary at this time. Surgery will sign off. - MRI- No evidence of acute appendicitis, although normal appendix not positively identified on MRI. Trace fluid in right pericolic gutter, trace right perinephric fluid. Concern for pyelonephritis of right kidney 3) Anemia - likely secondary to - H/H: 9.3/27.7 - Iron Sucrose 100 mg IV - monitor CBC 4) - SPECIAL NEEDS LIBRARIAN Consult- doppler bedside FHR: 170 . tachy 2/2 febrile mother with sepsis, recommendations appreciated - Multivitamins order placed 5) DVT Prophylaxis - SCDs
--- NOTE | 2018-03-12 12:23 | CP.PCM.DIS ---
Addendum entered and electronically signed by Lane Roman MD 03/12/18 18:15: Patient seen and examined bedside .All chart and clinical data reviewed . Case discussed with resident . Agree with assessment and discharge plan. 17 y/o female diagnosed with Gram negative Sepsis ( E.Coli bacteremia ) and pyelonephritis Given Rocephin 2 G IV daily for 2 days . Repeat blood cultures with no growth after 48 hours ID was consulted . Will continue rocephin as outpatient for 5 more days IV than Ciprofloxacin POO for 7 more days. patient to follow up with [facility] for repeta urine and blood cultyures after treatment finished . might need supressive Po antibiotic treatment for remainder of Dx Sepsis present on admission secondary to E.Coli bacteremia Pyelonephritis Anemia of - given Venofer . Continue vitamins and follow up with OB clinic Original Note: Provider - Provider Date of Admission: 03/10/18 20:29 Attending physician: Minesh Velasquez Primary care physician: Merrick Martínez [facility] Consults: Surgery- Dr. Schmidt Ob-Freight Traffic Consultant- Dr. Seals Infectious Disease- Dr. Wang Time Spent in preparation of Discharge (in minutes): 30 Hospital Course - Lab Results Lab Results: Micro Results 03/10/18 01:40 Blood Blood Culture - Final Escherichia Coli 03/10/18 01:40 Blood Gram Stain - Final 03/09/18 21:33 Urine,Clean Catch Urine Culture - Final Escherichia Coli 03/10/18 01:55 Blood Blood Culture - Preliminary NO GROWTH AFTER 48 HOURS Most Recent Lab Values WBC 9.3 K/uL (4.8-10.8) 03/11/18 05:16 RBC 3.29 Mil/uL (3.80-5.20) L 03/11/18 05:16 Hgb 9.3 g/dL (12.0-16.0) L 03/11/18 05:16 Hct 27.7 % (34.0-47.0) L 03/11/18 05:16 MCV 84.0 fl (81.0-99.0) 03/11/18 05:16 MCH 28.4 pg (27.0-31.0) 03/11/18 05:16 MCHC 33.8 g/dL (33.0-37.0) 03/11/18 05:16 RDW 16.4 % (11.5-14.5) H 03/11/18 05:16 Plt Count 207 K/uL (130-400) 03/11/18 05:16 MPV 9.1 fl (7.2-11.7) 03/11/18 05:16 Neut % (Auto) 79.1 % (50.0-75.0) H 03/11/18 05:16 Lymph % (Auto) 10.4 % (20.0-40.0) L 03/11/18 05:16 Banks % (Auto) 9.9 % (0.0-10.0) 03/11/18 05:16 Eos % (Auto) 0.4 % (0.0-4.0) 03/11/18 05:16 Baso % (Auto) 0.2 % (0.0-2.0) 03/11/18 05:16 Neut # (Auto) 7.3 K/uL (1.8-7.0) H 03/11/18 05:16 Lymph # (Auto) 1.0 K/uL (1.0-4.3) 03/11/18 05:16 Banks # (Auto) 0.9 K/uL (0.0-0.8) H 03/11/18 05:16 Eos # (Auto) 0.0 K/uL (0.0-0.7) 03/11/18 05:16 Baso # (Auto) 0.0 K/uL (0.0-0.2) 03/11/18 05:16 Neutrophils % (Manual) 77 % (42-75) H 03/09/18 21:26 Band Neutrophils % 5 % (0-2) H 03/09/18 21:26 Lymphocytes % (Manual) 7 % (20-50) L 03/09/18 21:26 Monocytes % (Manual) 10 % (0-10) 03/09/18 21:26 Basophils % (Manual) 1 % (0-2) 03/09/18 21:26 Platelet Estimate Normal (NORMAL) 03/09/18 21:26 Hypochromasia (manual) Slight 03/09/18 21:26 Poikilocytosis (manual Slight 03/09/18 21:26 Anisocytosis (manual) Slight 03/09/18 21:26 Microcytosis (manual) Slight 03/09/18 21:26 Ovalocytes Slight 03/09/18 21:26 Sodium 136 mmol/l (132-148) 03/11/18 05:16 Potassium 3.7 MMOL/L (3.6-5.0) 03/11/18 05:16 Chloride 107 mmol/L (98-107) 03/11/18 05:16 Carbon Dioxide 21 mmol/L (22-30) L 03/11/18 05:16 Anion Gap 12 (10-20) 03/11/18 05:16 BUN < 2 mg/dl (7-17) L 03/11/18 05:16 Creatinine 0.4 mg/dl (0.7-1.2) L 03/11/18 05:16 Est GFR ( Amer) > 60 03/11/18 05:16 Est GFR (Non-Af Amer) > 60 03/11/18 05:16 Random Glucose 116 mg/dL (65-105) H 03/11/18 05:16 Lactic Acid 1.6 MMOL/L (0.7-2.1) 03/10/18 13:39 Calcium 8.2 mg/dL (8.4-10.2) L 03/11/18 05:16 Total Bilirubin 0.1 mg/dl (0.2-1.3) L 03/11/18 05:16 AST 32 U/L (14-36) 03/11/18 05:16 ALT 37 U/L (9-52) 03/11/18 05:16 Alkaline Phosphatase 58 U/L (38-126) 03/11/18 05:16 Total Protein 6.4 G/DL (6.3-8.2) 03/11/18 05:16 Albumin 2.9 g/dL (3.5-5.0) L 03/11/18 05:16 Globulin 3.5 gm/dL (2.2-3.9) 03/11/18 05:16 Albumin/Globulin Ratio 0.8 (1.0-2.1) L 03/11/18 05:16 Lipase 19 U/L (23-300) L 03/09/18 21:26 Urine Color Yellow (YELLOW) 03/09/18 21:33 Urine Clarity Cloudy (Clear) 03/09/18 21:33 Urine pH 7.0 (5.0-8.0) 03/09/18 21:33 Ur Specific [place] 1.009 (1.003-1.030) 03/09/18: Urine Protein 30 mg/dL (NEGATIVE) 03/09/18: Urine Glucose (UA) Neg mg/dL (Normal) 03/09/18: Urine Ketones Negative mg/dL (NEGATIVE) 03/09/18: Urine Blood Small (NEGATIVE) 03/09/18: Urine Nitrate Negative (NEGATIVE) 03/09/18: Urine Bilirubin Negative (NEGATIVE) 03/09/18: Urine Urobilinogen 0.2-1.0 mg/dL (0.2-1.0) 03/09/18: Ur Leukocyte Esterase Trace Francis/uL (Negative) 03/09/18: Urine RBC (Auto) 5 /hpf (0-3) H 03/09/18: Urine Microscopic WBC 6 /hpf (0-5) H 03/09/18: Ur Squamous Epith Cells 13 /hpf (0-5) H 03/09/18: Amorphous Sediment Rare /ul (<OCC) H 03/09/18: Urine Bacteria Mod (<OCC) H 03/09/18: - Hospital Course Hospital Course: 17 year old at 16 weeks GA presented with 2 week history of right flank pa in, now with associated nausea and vomiting since yesterday. She reports she had pain on right side, pain has not worsened but has persisted. Patient was treated with IV Antibiotics, and Patient states all her symptoms have resolved and denies any symptoms of nausea, vomiting, diarrhea, vaginal discharge or urinary complaints. 1) Urinary Tract Infection with Sepsis - Patient transferred to Telemetry for monitoring - febrile, with positive leukocytosis - UA: positive - Blood Culture- positive for E. Coli - Urine Culture- E. Coli - Rocephin 1 gm DLAST DOSE PRIOR TO DISCHARGE - Patient tolerating PO - Infectious Disease Consult- As per Dr. Wang, continue current treatment plan - Upon discharge, patient will be on Rocephin 1 gm IV for 5 days followed by Ciprofloxacin 500 mg PO 5 days - Patient will follow up in [facility] for repeat cultures s/p Abx treatment- appointment scheduled for 03/19/18 at 3:20 PM in [facility] with Dr. Sadia Seals. 2) Right Flank Pain - likely renal in origin vs RUQ (gallbladder) - Abdominal US Results- Pending Final read - pain management- patient reports symptoms have resolved - General Surgery Consult- acute appendicitis r/o via MRI, No surgical intervention necessary at this time. Surgery will sign off. - MRI- No evidence of acute appendicitis, although normal appendix not positively identified on MRI. Trace fluid in right pericolic gutter, trace right perinephric fluid. Concern for pyelonephritis of right kidney 3) Anemia - likely secondary to - patient will follow up in 1 week for repeat CBC 4) - VICE PRESIDENT INDUSTRIAL RELATIONS Consult- doppler bedside FHR: 170 . tachy 2/2 febrile mother with sepsis, recommendations appreciated - Multivitamins order placed 5) DVT Prophylaxis - SCDs - Date & Time of H&P Date of H&P: 03/12/18 Time of H&P: 12:22 Discharge Exam - Head Exam Head Exam: ATRAUMATIC, NORMOCEPHALIC - Eye Exam Eye Exam: Normal appearance - ENT Exam ENT Exam: Mucous Membranes Moist - Neck Exam Neck exam: Full Rom - Respiratory Exam Respiratory Exam: Clear to PA & Lateral, NORMAL BREATHING PATTERN. absent: Rales, Rhonchi, Wheezes - Cardiovascular Exam Cardiovascular Exam: REGULAR RHYTHM, RRR, +S1, +S2. absent: JVD - GI/Abdominal Exam GI & Abdominal Exam: Normal Bowel Sounds, Soft. absent: Distended, Firm, Guarding, Tenderness - Back Exam Back exam: absent: CVA tenderness (L), CVA tenderness (R) - Neurological Exam Neurological exam: Alert, Oriented x3 - Psychiatric Exam Psychiatric exam: Normal Affect, Normal Mood - Skin Skin Exam: Normal Color Discharge Plan - Discharge Medications Prescriptions: cefTRIAXone 1 gm [Rocephin 1 gram IVPB] 1 gm IVPB DAILY #5 bag Ciprofloxacin HCl [Cipro] 500 mg PO BID #14 tab - Follow Up Plan Condition: FAIR Disposition: HOME/ ROUTINE Instructions: Urinary Tract Infection in Women (DC), Urinary Tract Infection in Men (DC), Sepsis (DC), Sepsis (GEN), Dysuria (GEN) Additional Instructions: Patient to follow up in [facility] for repeat blood work, patient appointment scheduled 03/19/18 at 3:[address] Seals. Patient advised to report 30 minutes prior to allow time for registration Referrals: [facility] [Outside] ([facility] at 3:[address] Seals)
[2018-03-12 12:27] VITALS: BP 110/68; PULSE 95; TEMP 98.7
--- NOTE | 2018-03-12 13:35 | CP.PCM.PN ---
Subjective - Date & Time of Evaluation Date of Evaluation: 03/12/18 Time of Evaluation: 09:00 - Subjective Subjective: seen on rounds appears well may need rx throughout cont IV rocephin Body Piercer Follow up Objective - Vital Signs/Intake and Output Vital Signs (last 24 hours): Temp Pulse Resp BP Pulse Ox 98.7 F 95 H 18 110/68 98 03/12/18 12:56 03/12/18 12:56 03/12/18 12:56 03/12/18 12:56 03/12/18 12:56 Intake and Output: 03/12/18 03/12/18 06:59 18:59 Intake Total 1000 Output Total 900 Balance 100 - Medications Medications: Current Medications Acetaminophen (Tylenol 325mg Tab) 650 mg PO Q6 PRN PRN Reason: Pain, moderate (4-7) Last Admin: 03/10/18 18:15 Dose: 650 mg Sodium Chloride (Sodium Chloride 0.9%) 1,000 mls @ 100 mls/hr IV .Q10H OTTONIEL Stop: 03/12/18 14:22 Last Admin: 03/12/18 10:35 Dose: 100 mls/hr Iron Sucrose 100 mg/ Sodium (Chloride) 105 mls @ 105 mls/hr IVPB DAILY OTTONIEL Last Admin: 03/12/18 10:36 Dose: 105 mls/hr Ceftriaxone Sodium 1 gm/ (Sodium Chloride) 100 mls @ 100 mls/hr IVPB DAILY OTTONIEL; Protocol Last Admin: 03/12/18 10:33 Dose: 100 mls/hr Ondansetron HCl (Zofran Tab) 4 mg PO Q6 PRN PRN Reason: Nausea/Vomiting Multivit/Folic Acid/Iron () 1 tab PO DAILY OTTONIEL Last Admin: 03/12/18 10:33 Dose: 1 tab - Labs Labs: 03/11/18 05:16 03/11/18 05:16 - Constitutional Appears: Well - Head Exam Head Exam: ATRAUMATIC, NORMAL INSPECTION, NORMOCEPHALIC - Eye Exam Eye Exam: EOMI, Normal appearance, PERRL Pupil Exam: NORMAL ACCOMODATION, PERRL - ENT Exam ENT Exam: Mucous Membranes Moist, Normal Exam - Neck Exam Neck Exam: Full ROM, Normal Inspection. absent: Lymphadenopathy - Respiratory Exam Respiratory Exam: Clear to Ausculation Bilateral, NORMAL BREATHING PATTERN - Cardiovascular Exam Cardiovascular Exam: REGULAR RHYTHM, +S1, +S2. absent: Murmur - GI/Abdominal Exam GI & Abdominal Exam: Soft, Normal Bowel Sounds. absent: Tenderness - Rectal Exam Rectal Exam: NORMAL INSPECTION - Extremities Exam Extremities Exam: Full ROM, Normal Capillary Refill, Normal Inspection. absent: Joint Swelling, Pedal Edema - Back Exam Back Exam: NORMAL INSPECTION - Neurological Exam Neurological Exam: Alert, Awake, CN II-XII Intact, Normal Gait, Oriented x3 - Psychiatric Exam Psychiatric exam: Normal Affect, Normal Mood - Skin Skin Exam: Dry, Intact, Normal Color, Warm Assessment and Plan (1) Sepsis Status: Acute (2) Abdominal pain during Status: Acute (3) Pyelonephritis affecting Status: Acute (4) Pyelonephritis affecting in first trimester Status: Acute (5) Bacteremia Status: Acute - Assessment and Plan (Free Text) Assessment: cont IV rocephin
== END 2018-03-12 15:25 | disposition home or self-care (01) | DRG 831 ==
LOC: H.ER 19:00 → H.ERHOLD 03-10 01:57 → H.MEDSURG1 03-10 04:57 → H.TEL 03-10 19:16 → OBSVTOIN 03-10 20:29
PROVIDERS: ADMIT Internal Medicine; ATTEND Internal Medicine
DX: O98.812 Other maternal infectious and parasitic diseases complicating pregnancy, second trimester (principal); A41.51 Sepsis due to Escherichia coli [E. coli]; O23.02 Infections of kidney in pregnancy, second trimester; N10 Acute pyelonephritis; O99.012 Anemia complicating pregnancy, second trimester; D64.9 Anemia, unspecified; Z3A.16 16 weeks gestation of pregnancy

== ENCOUNTER 2018-08-23 21:57 | Emergency (ER) | payer MEDICAID, SELFPAY ==
--- NOTE | 2018-08-24 01:43 | OBHP ---
Datetime: 08/23/2018 22:11 IP Adm Impression: Term, intrauterine IP Admit Plan: Observation/Evaluation Admit Comment, IP Provider: 17 YO with IUP at EGA 39.5 weeks, ANNALEE 08/25/18, who presents to [facility] with c/o moderate intermittent crampy pelvic pain and lower back pain that started at 7:30AM today a nd has been increasing in frequency Q5-6 min now, patient also reports she noticed blood spotting in the morning. Patient denies LOF, headache, dizziness, N/V, dysuria, fever or other medical complaint at this time. Patient endorses +FM. ROS: all other systems reviewed and negative unless noted in HPI OBGYN: Patient reports h/o Pyelonephritis in the first trimester, and h/o anemia during the pregna ncy. provider: Dr Laury Freitas at [place] PMH: None FMH: Father with DM Meds: PNV, Ferrous sulfate Surgical Hx: Denies SOCHx: denies ETOH, smoking, drug use ALLERG: NKA Labs: 08/02: GBS neg, GC/CL negative, Rubella neg/no immune. HIV Neg Type and screen: O+ PE: GEN: no acute distress, appears comfortable. Vitals: WNL Abd: Gravid, no tenderness to palpation Ext: No edema Pelvic exam: Cervix 2 cm dilated, effacement 60%, -4 A/P: 17 YO with IUP at EGA 39.5 weeks, ANNALEE 08/25/18, who presents to [facility] with c/o intermittent pel lashay pain and contractions. Patient appears comfortable. On Exam: Cervix thick, 2 cm dilation. Impression: Latent phase of labor -Observation -Maternal HR monitoring: Uterine contraction Q7min -FHR monitorins -Recheck in 1 h -plan to send home if no cervical changes, with instructions to return once pain and contractions frequency increase Case discussed with attending Dr Reno. Rico Reyna MD PGY1 23:55 Re-evaluation: Irregular contractions _Q7min Pelvic exam done with RN in room Mirella: Cervical exam 2 cm dilation (unchanged). Patient reports she lives nearby in [place], pt to be DC home, instructions given to patient to walk, return once contractions increases in frequency, or pain increases,or water breaks. Case discussed with attending Dr Rowdy Reyna MD PGY1 Extremities - PN: Normal Abdomen - PN: Normal Lungs - PN: Normal Heart - PN: Normal Neurologic - PN: Normal HEENT - PN: Normal General - PN: Normal FHR - Baseline A Provider: 140 Comments, ACOG Physical Exam: see triage comment IP Hx Assessment: The History has been Reviewed and is Current EGA AdmitDate IP: 39.3 Vital Signs Provider: Reviewed; Within Normal Limits IP Chief Complaint: Maternal discomfort NICHD Variability Prov Fetus A: Moderate 6-25bpm NICHD Accel Fetus A IP Provider: [id number] NICHD Decel Fetus A IP Provider: None Dilatation, Provider: 2 Effacement, Provider: 60
--- NOTE | 2018-08-24 01:45 | OBDCSUM ---
Datetime: 08/24/2018 00:01 Discharged to, Provider: Home Follow up at, Provider: OB Disch Instr Activity: Normal activity Disch Instr Diet: Regular Discharge Time: 08/24/2018 00:02 Follow up in weeks, Provider: this week Disch Referrals: None Discharge Diagnosis Prov Other: false labor
== END 2018-08-24 00:02 | disposition home or self-care (01) ==
LOC: H.EROB2 21:57
DX: O26.93 Pregnancy related conditions, unspecified, third trimester (principal); R10.2 Pelvic and perineal pain; M54.5 Low back pain; O26.853 Spotting complicating pregnancy, third trimester; Z3A.39 39 weeks gestation of pregnancy

== ENCOUNTER 2018-08-24 03:34 | Inpatient (IN) | payer MEDICAID, SELFPAY ==
[2018-08-24 04:15] VITALS: BMI 27.6
[2018-08-24] MEDS ORDERED: Lactated Ringer's 1,000 ML IV ONE (04:27)
[2018-08-24 04:47] LABS: BASO % 0.3 % (0.0-2.0); EOS # 0.1 K/uL (0.0-0.7); EOS % 0.7 % (0.0-4.0); HEMOGLOBIN 10.1 g/dL (12.0-16.0); LYMPH # 1.4 K/uL (1.0-4.3); LYMPH % 12.8 % (20.0-40.0); MEAN CELL VOLUME 79.4 fl (81.0-99.0); MEAN CORPUSCULAR HEMOGLOBIN 25.7 pg (27.0-31.0); MEAN CORPUSCULAR HGB CONC 32.3 g/dL (33.0-37.0); MEAN PLATELET VOLUME 9.1 fl (7.2-11.7); MONO # 0.8 K/uL (0.0-0.8); MONO % 7.5 % (0.0-10.0); NEUT # 8.3 K/uL (1.8-7.0); NEUT % 78.7 % (50.0-75.0); RBC 3.92 Mil/uL (3.80-5.20); RED CELL DISTRIBUTION WIDTH 23.4 % (11.5-14.5); WHITE BLOOD COUNT 10.5 K/uL (4.8-10.8)
[2018-08-24] MEDS: Lactated Ringer's 1,000 ML IV SCH ×2 (05:15→13:35)
[2018-08-24] MEDS ORDERED: Oxytocin 30 UNIT in NS 500 ml 30 UNITS/500 ML BAG IV ONE (06:08)
[2018-08-24] MEDS ORDERED: OXYTOCIN/0.9 % NS 20 UNIT/1,000 ML BAG IV SCH (06:30)
[2018-08-24] MEDS ORDERED: Oxycodone/Acetaminophen 5/325 mg Tab PO PRN ×2 (06:59→20:23)
[2018-08-24] MEDS ORDERED: Benzocaine/Menthol SPRAY TOP PRN ×2 (06:59→20:23)
--- NOTE | 2018-08-24 07:05 | OBADHP ---
Datetime: 08/24/2018 04:10 Admit Comment, IP Provider: 17 YO with IUP at EGA 39.6 weeks, ANNALEE 08/25/18, who presents to [facility] with c/o intermittent crampy pelvic pain and lower back pain that started at 7:30AM and has been inc reasing in frequency now Q4 min, patient also reports she noticed blood spotting in the morning. Robyn ent denies LOF, headache, dizziness, N/V, dysuria, fever or other medical complaint at this time. Of note patient was seen approximately 4 hours ago and evaluated, in latent labor, went home and now ret urns with increasing severity and frequency of contractions. Patient endorses +FM. ROS: all other systems reviewed and negative unless noted in HPI OBGYN: Patient reports h/o Pyelonephritis in the first trimester, and h/o anemia during the pregna ncy. provider: Dr Tatianna Freitas at [place], Dr Robin Brown PMH: None FMH: Father with DM Meds: PNV, Ferrous sulfate Surgical Hx: Denies SOCHx: denies ETOH, smoking, drug use ALLERG: NKA Labs: 08/02: GBS neg, GC/CL negative, Rubella neg/no immune. HIV Neg Type and screen: O+ PE: GEN: no acute distress, appears in distress due to Labor pain. Vitals: WNL Abd: Gravid, no tenderness to palpation Ext: No edema Pelvic exam: Cervix 5 cm dilated, effacement 100%, station 0 A/P: 17 YO with IUP at EGA 39.5 weeks, ANNALEE 08/25/18, who presents to [facility] with c/o intermittent pel lashay pain and contractions. On Exam: Cervix thin, 5 cm dilation, Effacement 100%. Impression: Latent to active phase of labor -Admit to L_D -Maternal HR monitoring -FHR monitorins -Type and screen Case discussed with attending Dr Rowdy Reyna MD PGY1 Addendum by Dr. Reno: I have evaluated patient independently and I agree with the above Lungs - PN: Normal Heart - PN: Normal HEENT - PN: Normal General - PN: Normal FHR - Baseline A Provider: 150 Comments, ACOG Physical Exam: see admit note IP Hx Assessment: The History has been Reviewed and is Current Vital Signs Provider: Reviewed; Within Normal Limits IP Chief Complaint: Uterine contractions; Maternal discomfort NICHD Variability Prov Fetus A: Moderate 6-25bpm NICHD Accel Fetus A IP Provider: [id number] NICHD Decel Fetus A IP Provider: None Dilatation, Provider: 5 Effacement, Provider: 100 Station, Provider: 0 EGA AdmitDate IP: 39.4 IP Adm Impression: Term, intrauterine IP Admit Plan: Admit to unit; Initiate labor protocol Datetime: 08/24/2018 04:07 Extremities - PN: Normal Abdomen - PN: Normal Datetime: 08/23/2018 22:11 Neurologic - PN: Normal
--- NOTE | 2018-08-24 07:08 | OBDS ---
DELIVERY PERSONNEL Delivery Doctor: Dereje Reno MD Comic Illustrator: Kailee Albarran RN MATERNAL INFORMATION Delivery Anesthesia: Local Medications in Delivery: Oxytocin Placenta Cultured: No Maternal Complications: None Provider Comments: of live male precipitously over intact perineum, mouth and nose sucti oned and infant placed on mother's chest, cord clamped and cut, cord blood obtained, placenta deliver ed spontaneously, fundus firm, vaginal abrasions repaired with local Lidocaine 1% and 3-0 Vicryl rapi de, EBL=50mL, patient otherwise tolerated procedure well LABOR SUMMARY EDC: 08/27/2018 00:00 No. Babies in Womb: 1 Attempted: No Labor Anesthesia: None LABOR INFORMATION Reason for Induction: Not Applicable Onset of Labor: 08/24/2018 04:00 Complete Dilatation: 08/24/2018 06:36 Oxytocin: N/A Group B Beta Strep: Negative Antibiotics # of Doses: 0 Steroids Given: None Reason Steroids Not Administered: Not Applicable MEMBRANES Membranes Rupture Method: Spontaneous Rupture of Membranes: 08/24/2018 06:36 Length of Rupture (hrs): 0.05 Amniotic Fluid Color: Clear Amniotic Fluid Amount: Moderate Amniotic Fluid Odor: Normal STAGES OF LABOR Stage 1 hrs: 2 Stage 1 min: 36 Stage 2 hrs: 0 Stage 2 min: 3 Stage 3 hrs: 0 Stage 3 min: 8 Total Time in Labor hrs: 2 Total Time in Labor min: 47 BABY A INFORMATION Infant Delivery Date/Time: 08/24/2018 06:39 Method of Delivery: Vaginal Born in Route : No : N/A Forceps: N/A Vacuum Extraction: N/A Shoulder Dystocia : No SHOULDER DYSTOCIA BABY A Infant Delivery Date/Time: 08/24/2018 06:39 PRESENTATION/POSITION BABY A Presentation: Cephalic Cephalic Presentation: Vertex PLACENTA INFORMATION BABY A Placenta Delivery Time : 08/24/2018 06:47 Placenta Method of Delivery: Spontaneous Placenta Status: Delivered SCORES BABY A Heart Rate 1 min: >100 bpm Resp Effort 1 min: Good Cry Reflex Irritability 1 min: Cough or Sneeze or Pulls Away Muscle Tone 1 min: Active Motion Color 1 min: Body [place], Extremities Blue Resuscitation Effort 1 min: Tactile Stimulation SCORE 1 MIN: 9 Heart Rate 5 min: >100 bpm Resp Effort 5 min: Good Cry Reflex Irritability 5 min: Cough or Sneeze or Pulls Away Muscle Tone 5 min: Active Motion Color 5 min: Body [place], Extremities Blue Resuscitation Effort 5 min: Tactile Stimulation SCORE 5 MIN: 9 INFANT INFORMATION BABY A Gestational Age at Delivery: 39.4 Gestational Status: Term Infant Outcome : Liveborn Infant Condition : Stable Infant Sex: Male IDENTIFICATION/MEDS BABY A ID Band Location: Left Leg; Left Arm CORD INFORMATION BABY A Nuchal Cord : Around Neck x1, Loose Cord Blood Taken: Yes ASSESSMENT BABY A Complications: None Physical Findings at Delivery: Within Normal Limits Respirations: Appears Normal Waist Presser/ALS Called : No Transferred To: Remains with Mother
[2018-08-25 07:17] LABS: HEMOGLOBIN 8.6 g/dL (12.0-16.0); MEAN CELL VOLUME 80.1 fl (81.0-99.0); MEAN CORPUSCULAR HEMOGLOBIN 25.8 pg (27.0-31.0); MEAN CORPUSCULAR HGB CONC 32.2 g/dL (33.0-37.0); RBC 3.35 Mil/uL (3.80-5.20); WHITE BLOOD COUNT 11.1 K/uL (4.8-10.8)
[2018-08-25] MEDS ORDERED: Measles, Mumps, and Rubella 0.5 ML VIAL SC ONE (09:00)
--- NOTE | 2018-08-25 09:30 | OBPPN ---
Datetime: 08/25/2018 06:26 PP Pain Prov: Within normal limits PP Nausea Prov: Denies PP Flatus Prov: Yes PP BM Prov: No PP Heart Prov: Normal PP Lungs Prov: Normal PP Abdomen/Uterus Prov: Normal PP Comments Phys Exam Prov: see progress note PP Impression Prov: Normal progression PP Plan Prov: Continue present management PP Progress Note Prov: S:17 YO s/p , today is her PPD 1. Patient seen and examined at [facility]. Pain control with medication. Patient ambulating with no difficulty. Tolerating regular diet with out N/V. Lochia is more than menses in volume yet. Patient has passed flatus, no BM yet. Patient sidra es RICHARDS, blurry vision, CP, palpitations, SOB, chills dysuria or other complaint at this time. Breastfe eding appropriately. O:VS: wnl Gen: NAD HEENT: NCAT Cardio: RRR, S1S2 present, no murmurs noted. Lungs: CTA B/L, no wheezes, rales or rhonchi Abd: soft, appropriate tenderness to palpation, Uterus firm at level of umbilicus Ext: No edema, Deangelo's negative NEURO/PSYCH: AAOx3, no grossly focal deficits, preserved affect and mood A/P 17 YO s/p , today is her PPD 1. Patient is afebrile, hemodynamically stable and with norm al PP progression. Plan: - and ambulation encouraged. -Acetaminophen 650 PO Q6h PRN pain mild -Percocet 5/325 PO Q4h PRN pain -Continue vit -DC planning today Case discussed with attending Rico Reyna MD PGY1 The patient was seen with the resident I agree with the note Vital Signs Provider PP: Reviewed; Within Normal Limits
[2018-08-26] MEDS ORDERED: Measles, Mumps, and Rubella 0.5 ML VIAL SC ONE ×2 (09:00)
[2018-08-27 01:06] VITALS: BP 125/75; PULSE 89; RESP 20; TEMP 98.4; O2SAT 98
== END 2018-08-26 16:30 | disposition home or self-care (01) | DRG 560 ==
LOC: H.EROB2 03:34 → H.ERHOLD 04:28 → H.L&D 04:29 → H.OB/GYN 08:45
PROVIDERS: ADMIT Obstetrics & Gynecology; ATTEND Obstetrics & Gynecology
PROC: 10E0XZZ Delivery of Products of Conception, External Approach (ICD-10-PCS; principal; 2018-08-24)
PROC: 0HQ9XZZ Repair Perineum Skin, External Approach (ICD-10-PCS; 2018-08-24)
PROC: 4A1HXCZ Monitoring of Products of Conception, Cardiac Rate, External Approach (ICD-10-PCS; 2018-08-24)
DX: O69.81X0 Labor and delivery complicated by cord around neck, without compression, not applicable or unspecified (principal); O70.0 First degree perineal laceration during delivery; Z37.0 Single live birth; Z3A.39 39 weeks gestation of pregnancy; Z83.3 Family history of diabetes mellitus